=== PATIENT | male | born 1995 | race Caucasian/White ===

== ENCOUNTER 2018-10-10 23:51 | Emergency (ER) | payer OTHER, MEDICAID, SELFPAY ==
[2018-10-11 00:01] VITALS: BP 133/61; PULSE 59; RESP 16; TEMP 36.6; O2SAT 98; BMI 29.0
--- NOTE | 2018-10-11 00:07 | ED.RECABL ---
HPI - Recheck/Abnormal Lab/Rx General Chief Complaint: Recheck/Abnormal Lab/Rx Stated Complaint: out of seizure medication, feels stressed Time Seen by Provider: 10/11/18 00:00 Source: patient and family Mode of arrival: ambulatory Limitations: no limitations History of Present Illness HPI narrative: 23-year-old male, nonsmoker with history of epilepsy presents feeling a bit fuzzy and scattered as he does when preparing to have a seizure. He takes Keppra but has been unable to access his medications for the past 2 days for various social reasons. He has a prescription waiting for him but has been unable to get it. Additionally the patient has been under significant social stresses at home and has some epigastric discomfort, nausea and inability to eat or drink for the past day or 2. He denies provocation, palliation or radiation of this pain. He denies any history of the same. He denies recent antibiotics, exposure to ill persons or international travel Initial visit (ago): day(s) Symptoms since prior visit: no new symptoms Related Data Allergies Allergy/AdvReac Type Severity Reaction Status Date / Time Penicillins Allergy Verified 10/11/18 00:05 Sulfa (Sulfonamide Allergy Verified 10/11/18 00:05 Antibiotics) Review of Systems Constitutional Denies chills, Denies fever(s), Denies lethargy and Denies weakness Eyes Denies change in vision, Denies eye discharge, Denies irritation and Denies loss of vision ENT Ears, Nose, Mouth, and Throat: Denies change in voice, Denies neck pain and Denies sore throat Cardiovascular Denies chest pain, Denies irregular heart rhythm, Denies lightheadedness, Denies palpitations, Denies dyspnea, Denies dyspnea on exertion and Denies orthopnea Respiratory Denies cough, Denies dyspnea, Denies dyspnea on exertion and Denies wheezing Gastrointestinal Gastrointestinal: Reports abdominal pain, Denies change in bowel habits, Denies diarrhea, Reports nausea and Reports vomiting Genitourinary Denies hematuria, Denies flank pain, Denies urinary incontinence and Denies urinary urgency Musculoskeletal Denies neck pain Integumentary/Breasts Denies pruritus, Denies erythema, Denies rash and Denies wounds Neurologic Denies confusion, Denies loss of vision and Denies weakness Psychiatric Denies anxiety, Denies confusion, Denies depression, Denies homicidal ideation and Denies suicidal ideation Endocrine Denies palpitations Hematologic/Lymphatic Denies easy bruising Allergic/Immunologic Denies wheezing PFSH Medical History Epilepsy (Acute) Social History Smoking Status: Never smoker Social History Smoking Status: Never smoker Exam Narrative Exam Narrative: GENERAL: This is a well-nourished, well-developed patient, in mild distress. HEAD: Atraumatic. Normocephalic. No temporal or scalp tenderness. EYES: Pupils equal round and reactive. Extraocular motions intact. No scleral icterus. No injection or drainage. ENT: Nose without bleeding, purulent drainage or septal hematoma. Throat without erythema, tonsillar hypertrophy or exudate. Uvula midline. Airway patent. NECK: Trachea midline. No JVD or lymphadenopathy. Supple, nontender, no meningeal signs. CARDIOVASCULAR: Regular rate and rhythm without murmurs, gallops, or rubs. RESPIRATORY: Clear to auscultation. Breath sounds equal bilaterally. No wheezes, rales, or rhonchi. GASTROINTESTINAL: Abdomen soft, mild epigastric tenderness, nondistended. No hepato-splenomegaly, or palpable masses. No guarding. EXTREMITIES: No clubbing, cyanosis, or edema. No joint tenderness, effusion, or edema noted. BACK: Nontender without deformity or crepitance. No flank tenderness. NEURO: AOx3. SKIN: No rash or erythema. Initial Vital Signs Initial Vital Signs: Vital Signs Temperature 97.9 F 10/11/18 00:01 Pulse Rate 59 L 10/11/18 00:01 Respiratory Rate 16 10/11/18 00:01 Blood Pressure 133/61 10/11/18 00:01 Pulse Oximetry 98 10/11/18 00:01 Course Orders Ordered: ED Orders 10/11/18 01:12 Complete Blood Count AUTO DIFF Stat Comprehensive Metabolic Panel Stat Lipase Stat Discontinued Medications Al Hydrox/Mg Hydrox/Simethicone 20 ml/ Lidocaine HCl 15 ml 0 ml PO NOW ONE Stop: 10/11/18 00:14 Last Admin: 10/11/18 01:02 Dose: 35 ml Sodium Chloride (Normal Saline 0.9%) 1,000 mls @ 1,000 mls/hr IV BOLUS ONE Stop: 10/11/18 01:11 Last Infusion: 10/11/18 01:53 Dose: 0 mls/hr Admin: 10/11/18 01:02 Dose: 1,000 mls/hr Levetiracetam 500 mg/ Sodium (Chloride) 105 mls @ 420 mls/hr IV NOW ONE Stop: 10/11/18 00:13 Last Infusion: 10/11/18 01:33 Dose: 0 mls/hr Admin: 10/11/18 01:03 Dose: 420 mls/hr Pantoprazole Sodium (Protonix) 40 mg IV NOW ONE Stop: 10/11/18 00:13 Last Admin: 10/11/18 01:02 Dose: 40 mg Reevaluation(s) Reevaluation #1: Patient put into seizure precautions Vital Signs - 8 hr 10/11/18 00:01 10/11/18 01:55 Temperature 97.9 F Pulse Rate 59 L 53 L Respiratory Rate 16 15 Blood Pressure 133/61 119/75 Pulse Oximetry 98 100 MDM - Recheck/Abnormal Lab/Rx Lab Data Result diagrams: 10/11/18 01:12 10/11/18 01:12 Lab Results 10/11/18 10/11/18 10/11/18 Range/Units 01:12 01:12 01:12 WBC 8.2 (4.5-11.0) X10^3/uL RBC 4.90 (4.5-5.9) X10^6/uL Hgb 14.1 (13.5-17.5) g/dL Hct 41.5 (41-53) % MCV 84.7 (80-100) fL MCH 28.8 (26-34) PG MCHC 34.0 (30-36) % RDW 13.2 (11.6-14.8) % Plt Count 344 (150-400) X10^3/uL Neut % (Auto) 56.2 (50-75) % Lymph % (Auto) 35.4 (25-40) % Anderson % (Auto) 7.0 (3-14) % Eos % (Auto) 0.8 L (2-4) % Baso % (Auto) 0.6 (0-2) % Neut # (Auto) 4600 (9836-9559) /uL Lymph # (Auto) 2900 (1769-8973) /uL Anderson # (Auto) 600 (0-900) /uL Eos # (Auto) 100 (0-450) /uL Baso # (Auto) 0 (0-100) /uL Sodium 141 (137-145) mmol/L Potassium 4.2 (3.4-5.1) mmol/L Chloride 102 (98-107) mmol/L Carbon Dioxide 29 (22-32) mmol/L BUN 19 (9-20) mg/dL Creatinine 0.80 (0.66-1.25) mg/dL Estimated GFR > 60.0 (>60) mL/min BUN/Creatinine Ratio 23.8 H (6-22) Glucose 89 (70-100) mg/dL Calcium 9.5 (8.4-10.2) mg/dL Total Bilirubin 0.3 (0.2-1.3) mg/dL AST 21 (17-59) IU/L ALT 27 (21-72) IU/L Alkaline Phosphatase 68 (38-126) U/L Total Protein 7.7 (6.3-8.2) g/dL Albumin 4.8 (3.5-5.0) g/dL Globulin 2.9 (1.7-4.1) g/dL Albumin/Globulin Ratio 1.7 (1.0-2.8) Lipase 149 (23-300) U/L Discharge Plan Departure Patient Disposition: Home Clinical Impression: Encounter for medication refill, Abdominal pain, acute, epigastric Discharge Date/Time: 10/11/18 01:56 Interventions: ED Discharge Assessment Last Done: 10/11/18 01:55 Instructions: DI for Epigastric Pain Activity Restrictions/Additional Instructions: *You have been diagnosed with [ acute epigastric pain, medication refill ] *What to do: *Take medications as directed, including [id number] Nexium or similar antacid type medication. Additionally please avoid alcohol, caffeine, nicotine, fatty foods *Follow up with your primary care provider in 2-3 days, call for an appointment. Let them know you were seen in the Emergency Department and that we ask that you be seen in follow up *Return to ER if you should have any new, worsening or concerning symptoms
[2018-10-11] MEDS: MAG HYDROX/ALUMINUM/SIMETH SUS 20 ML, LIDOCAINE VISCOUS 2% 15 ML PO (01:02)
[2018-10-11] MEDS: PANTOPRAZOLE 40 MG VIAL IV (01:02)
[2018-10-11] MEDS: SODIUM CHLORIDE 0.9% 1,000 ML 1000 ML IV (01:02)
[2018-10-11] MEDS: levETIRAcetam 500 MG in SODIUM CHLORIDE 0.9% 100 ML 420 ML IV (01:03)
[2018-10-11 01:20] LABS: Add Manual Diff / Slide Review NO; Basophils Absolute Auto 0 /uL (0-100); Basophils Percent Auto 0.6 % (0-2); Eosinophils Absolute Auto 100 /uL (0-450); Eosinophils Percent Auto 0.8 % (2-4); Hematocrit 41.5 % (41-53); Hemoglobin 14.1 g/dL (13.5-17.5); Lymphocytes Absolute Auto 2900 /uL (1100-4500); Lymphocytes Percent Auto 35.4 % (25-40); Mean Corpuscular Hemoglobin 28.8 PG (26-34); Mean Corpuscular Volume 84.7 fL (80-100); Monocytes Absolute Auto 600 /uL (0-900); Neutrophils Absolute Auto 4600 /uL (1500-7000); Neutrophils Percent Auto 56.2 % (50-75); Platelet Count 344 X10^3/uL (150-400); Red Cell Distribution Width 13.2 % (11.6-14.8); White Blood Cell Count 8.2 X10^3/uL (4.5-11.0)
[2018-10-11 01:25] LABS: Alanine Aminotransferase 27 IU/L (21-72); Albumin 4.8 g/dL (3.5-5.0); Albumin Globulin Ratio 1.7 (1.0-2.8); Alkaline Phosphatase 68 U/L (38-126); Aspartate Aminotransferase 21 IU/L (17-59); BUN Creatinine Ratio 23.8 (6-22); Bilirubin Total 0.3 mg/dL (0.2-1.3); Blood Urea Nitrogen 19 mg/dL (9-20); Calcium 9.5 mg/dL (8.4-10.2); Carbon Dioxide 29 mmol/L (22-32); Chloride 102 mmol/L (98-107); Estimated Glomerular Filt Rate > 60.0 mL/min (>60); Globulin 2.9 g/dL (1.7-4.1); Glucose 89 mg/dL (70-100); HEMOLYSIS 19 (0-50); Potassium 4.2 mmol/L (3.4-5.1); Sodium 141 mmol/L (137-145); Total Protein 7.7 g/dL (6.3-8.2)
[2018-10-11 01:31] LABS: Lipase 149 U/L (23-300)
[2018-10-11 01:55] VITALS: BP 119/75; PULSE 53; RESP 15; O2SAT 100
== END 2018-10-11 01:56 | disposition home or self-care (01) ==
PROVIDERS: Emergency Provider Emergency Medicine
DX: R10.13 Epigastric pain (principal)
CPT/HCPCS: 36591; 80053; 83690; 85025; 96361; 96365; 96375; 99283; 99284; C9113; J1953

== ENCOUNTER 2019-02-04 21:06 | Emergency (ER) | payer OTHER, MEDICAID, SELFPAY ==
[2019-02-04 21:08] VITALS: BP 113/66; PULSE 69; RESP 18; TEMP 36.7; O2SAT 96; BMI 28.3
--- NOTE | 2019-02-04 21:11 | DI.RAD.S_ITS ---
PROCEDURE: XR FOOT RT MIN 3V INDICATIONS: Injury TECHNIQUE: 3 views of the foot were acquired. COMPARISON: None. FINDINGS: Bones: No fractures or dislocations. No suspicious bony lesions. Soft tissues: No tibiotalar joint effusion. Achilles tendon appears normal. IMPRESSION: No source of pain after trauma. Dictated by: Lobito Medina M.D. on 02/04/2019 at 21:26 Approved by: Lobito Medina M.D. on 02/04/2019 at 21:32
--- NOTE | 2019-02-04 21:14 | ED_ITS ---
HPI - Extremity Injury (Lower) General Chief Complaint: Extremity Injury, Lower Stated Complaint: right foot pain x 14 days Time Seen by Provider: 02/04/19 21:14 Source: patient Mode of arrival: ambulatory Limitations: no limitations History of Present Illness HPI Narrative: Patient is a 23-year-old male here for evaluation of her right foot injury. Patient states that 10-14 days ago he caught the front of his foot in a ditch in the ground. He then went forward. Has had pain on the top of his foot near his big toe since that event. States the pain is worsened over the past several days. He has tried ice at home and ibuprofen and Tylenol with only minimal relief. No breaks in the skin. Came into the emergency department for evaluation. Related Data Previous Rx's Medication Instructions Recorded cyclobenzaprine 10 mg PO TID PRN #14 tab 02/04/19 Allergies Allergy/AdvReac Type Severity Reaction Status Date / Time Penicillins Allergy Verified 10/11/18 00:05 Sulfa (Sulfonamide Allergy Verified 10/11/18 00:05 Antibiotics) Review of Systems Constitutional Denies fever(s) and Denies headache(s) ENT Ears, Nose, Mouth, and Throat: Denies headache(s) and Denies disequilibrium Cardiovascular Denies chest pain and Denies dyspnea Respiratory Denies dyspnea Gastrointestinal Gastrointestinal: Denies abdominal pain Musculoskeletal Comments: Right foot pain Integumentary/Breasts Denies new lesions and Denies rash Neurologic Denies headache(s), Denies tremor(s) and Denies disequilibrium Hematologic/Lymphatic Denies easy bleeding and Denies easy bruising [facility] Medical History Epilepsy (Acute) Social History Smoking Status: Never smoker Social History Smoking Status: Never smoker Exam Initial Vital Signs Initial Vital Signs: Vital Signs Temperature 98.1 F 02/04/19 21:08 Pulse Rate 69 02/04/19 21:08 Respiratory Rate 18 02/04/19 21:08 Blood Pressure 113/66 02/04/19 21:08 Pulse Oximetry 96 02/04/19 21:08 Resp Effort & Inspection: normal respiratory effort Cardio Pulses: dorsalis pedis present on the right Skin Lesions: no lesions Rashes: no rashes Neuro Sensory Exam: no sensory deficits noted Extrem Other: Right proximal fibula and right calf unremarkable. Right ankle unremarkable. Patient with tenderness to palpation on the dorsum of the foot between the 1st and 2nd metatarsal. Also tenderness to palpation on the plantar aspect of this area. His toes unremarkable. The lateral aspect of the foot is unremarkable. Course Orders Ordered: ED Orders 02/04/19 21:11 XR foot RT min 3V Stat 02/04/19 21:33 CT LE RT wo con Stat Discontinued Medications Hydrocodone Bitart/Acetaminophen ([place] 5/325) 1 tab PO NOW ONE Stop: 02/04/19 22:18 Last Admin: 02/04/19 22:22 Dose: 1 tab Cyclobenzaprine HCl (Flexeril) 10 mg PO NOW ONE Stop: 02/04/19 22:18 Last Admin: 02/04/19 22:22 Dose: 10 mg Vital Signs - 8 hr 02/04/19 21:08 02/04/19 22:45 Temperature 98.1 F Pulse Rate 69 72 Respiratory Rate 18 18 Blood Pressure 113/66 114/72 Pulse Oximetry 96 98 MDM - Extremity Injury (Lower) Imaging Data X-ray foot: Radiologist's impression: [address] [address] XRay Report Signed Patient: Ulises Pierce II BMR#: [id number] : 1995Acct:[id number] Age/Sex: 23 / MDate of Service: 02/04/19 Loc: ED Accession Number: [id number] Procedure: XR foot RT min 3V Ordering Provider: Ryley Gannon D.O. PROCEDURE: XR FOOT RT MIN 3V INDICATIONS: Injury TECHNIQUE: 3 views of the foot were acquired. COMPARISON: None. FINDINGS: Bones: No fractures or dislocations. No suspicious bony lesions. Soft tissues: No tibiotalar joint effusion. Achilles tendon appears normal. IMPRESSION: No source of pain after trauma. Dictated by: Lobito Medina M.D. on 02/04/2019 at 21:26 Approved by: Lobito Medina M.D. on 02/04/2019 at 21:32 CT scan foot: Radiologist's impression: [address] [address] [address] Scan Report Signed Patient: Ulises Pierce II BMR#: [id number] : 1995Acct:[id number] Age/Sex: 23 / MDate of Service: 02/04/19 Loc: ED Accession Number: [id number] Procedure: CT LE RT wo con Ordering Provider: Ryley Gannon D.O. PROCEDURE: CT LE RT WO CON INDICATIONS: Concern for Lisfranc injury TECHNIQUE: Noncontrast 1-1.5 mm axial sections acquired from above the tibiotalar joint to the bottom of the calcaneus, with coronal and sagittal reformats. COMPARISON: [facility], CR, XR FOOT RT MIN 3V, 02/04/2019, 21:19. FINDINGS: Image quality: Excellent. Bones: No trauma, no malalignment. Soft tissues: No fracture soft tissue edema found, no evidence of ligamentous disruption. IMPRESSION: Normal osseous alignment, no fracture found. Dictated by: Lobito Medina M.D. on 02/04/2019 at 21:56 Approved by: Lobito Medina M.D. on 02/04/2019 at 21:59 [facility] Narrative Medical decision making narrative: Patient describes the injury as a plantar flexion after he got his foot caught in a hole in the ground. He does have tenderness over the 1st and 2nd metatarsal on the dorsum aspect of his foot. The x-rays were negative. Given his mechanism in the location of the pain I do have some concern about a Lisfranc injury. CT scan was obtained which showed no abnormalities. Patient was given crutches for comfort. We did discuss Tylenol Motrin and also icing the area. He was given phone number for the health resources coordinator to help establish a primary provider. Was given return precautions and follow-up instructions. He expressed understanding and agreement with plan Discharge Plan Departure Patient Disposition: Home Clinical Impression: Foot pain, right Discharge Date/Time: 02/04/19 22:48 Interventions: ED Discharge Assessment Last Done: 02/04/19 22:45 Instructions: How to Use Crutches, DI for Foot Pain Activity Restrictions/Additional Instructions: Use the crutches as needed for comfort. You can take Tylenol every 4-6 hours and ibuprofen every 6-8 hours as needed for discomfort. You can contact the health complex human resources manager here at the hospital at [phone] to help you establish a primary provider. You can also contact the [facility] group at [phone] for follow-up. Return to the emergency department for any new or worsening symptoms. Prescriptions: New cyclobenzaprine 10 mg tablet 10 mg PO TID PRN (Reason: muscle spasm) Qty: 14 RF: 0
--- NOTE | 2019-02-04 21:33 | DI.CT.S_ITS ---
PROCEDURE: CT LE RT WO CON INDICATIONS: Concern for Lisfranc injury TECHNIQUE: Noncontrast 1-1.5 mm axial sections acquired from above the tibiotalar joint to the bottom of the calcaneus, with coronal and sagittal reformats. COMPARISON: [facility], CR, XR FOOT RT MIN 3V, 02/04/2019, 21:19. FINDINGS: Image quality: Excellent. Bones: No trauma, no malalignment. Soft tissues: No fracture soft tissue edema found, no evidence of ligamentous disruption. IMPRESSION: Normal osseous alignment, no fracture found. Dictated by: Lobito Medina M.D. on 02/04/2019 at 21:56 Approved by: Lobito Medina M.D. on 02/04/2019 at 21:59
[2019-02-04] MEDS: CYCLOBENZAPRINE 10 MG TABLET PO (22:22)
[2019-02-04] MEDS: HYDROCODONE/ACET 5/325 TABLET 1 TAB PO (22:22)
[2019-02-04 22:45] VITALS: BP 114/72; PULSE 72; RESP 18; O2SAT 98
== END 2019-02-04 22:48 | disposition home or self-care (01) ==
PROVIDERS: Emergency Provider Emergency Medicine
DX: M79.671 Pain in right foot (principal)
CPT/HCPCS: 73630; 73700; 99282; 99284

== ENCOUNTER 2019-02-14 21:07 | Emergency (ER) | payer OTHER, MEDICAID, SELFPAY ==
[2019-02-14 21:14] VITALS: BP 119/64; PULSE 67; RESP 18; TEMP 36.6; O2SAT 98
--- NOTE | 2019-02-14 22:26 | DI.RAD.S_ITS ---
PROCEDURE: XR FOOT RT MIN 3V INDICATIONS: Foot pain after plantar flexion injury TECHNIQUE: 3 views of the foot were acquired. COMPARISON: [facility], CR, XR FOOT RT MIN 3V, 02/04/2019, 21:19. FINDINGS: Bones: No fractures or dislocations. No suspicious bony lesions. Soft tissues: No tibiotalar joint effusion. Achilles tendon appears normal. IMPRESSION: No trauma found. Dictated by: Lobito Medina M.D. on 02/15/2019 at 9:34 Approved by: Lobito Medina M.D. on 02/15/2019 at 9:36
--- NOTE | 2019-02-14 22:27 | ED.LOWEXIN ---
HPI - Extremity Injury (Lower) General Chief Complaint: Extremity Injury, Lower Stated Complaint: Foot injury -1 week ago- needs clearance for work Time Seen by Provider: 02/14/19 22:16 Source: patient Mode of arrival: ambulatory Limitations: no limitations History of Present Illness HPI Narrative: Patient is a 23-year-old male who I evaluated the emergency department several days ago for right foot pain after he sustained a plantar flexion injury. At that time there was some concern about a Jo [place] franc injury. I obtained an x-ray and a CT scan of the time and showed no signs of pathology. He was instructed to follow up with his primary provider. He was given a number to contact to establish a primary provider. Stated since that time he has continued to have right foot pain. He arrives today stating that he wanted re-evaluated and also needed a note for work because he has missed days. Related Data Previous Rx's Medication Instructions Recorded cyclobenzaprine 10 mg PO TID PRN #14 tab 02/04/19 Allergies Allergy/AdvReac Type Severity Reaction Status Date / Time Penicillins Allergy Verified 10/11/18 00:05 Sulfa (Sulfonamide Allergy Verified 10/11/18 00:05 Antibiotics) Review of Systems Musculoskeletal Denies tingling Comments: Right foot pain Integumentary/Breasts Denies rash Neurologic Denies tingling Hematologic/Lymphatic Denies easy bleeding and Denies easy bruising [facility] Medical History Epilepsy (Acute) Social History Smoking Status: Never smoker Social History Smoking Status: Never smoker Exam Initial Vital Signs Initial Vital Signs: Vital Signs Temperature 98 F 02/14/19 21:14 Pulse Rate 67 02/14/19 21:14 Respiratory Rate 18 02/14/19 21:14 Blood Pressure 119/64 02/14/19 21:14 Pulse Oximetry 98 02/14/19 21:14 Const General: cooperative, healthy appearing, comfortable, well developed and well groomed Orientation: alert, awake and oriented x3 Cardio Pulses: dorsalis pedis present on the right Skin Lesions: no lesions Rashes: no rashes Neuro General: alert, awake and oriented x3 Extrem Other: Tenderness to palpation along the dorsum of the right foot. No right ankle tenderness. Right toes unremarkable. Right lower low leg unremarkable Psych Appearance: grossly normal and well kempt Course Orders Ordered: ED Orders 02/14/19 22:26 XR foot RT min 3V Stat Discontinued Medications Ibuprofen (Advil) 800 mg PO NOW ONE Stop: 02/14/19 23:19 Last Admin: 02/14/19 23:28 Dose: 800 mg Vital Signs - 8 hr 02/14/19 21:14 02/14/19 23:04 Temperature 98 F Pulse Rate 67 57 L Respiratory Rate 18 16 Blood Pressure 119/64 Blood Pressure [Left Arm] 108/69 Pulse Oximetry 98 100 MDM - Extremity Injury (Lower) Imaging Data Weight-bearing right foot film: Attestation: I personally reviewed and interpreted this imaging study as follows: My impression: No fractures, no dislocations, no acute pathology, MDM Narrative Medical decision making narrative: Patient is neurovascular intact. The weight-bearing films today shows no acute fracture per my read. Patient has been ambulatory although with some discomfort. He was again given a phone number to contact to establish a primary provider. He was given a note stating that he should not have prolonged standing while at work. Patient was also given follow-up instructions with [facility] orthopedics. He expressed understanding and agreement with plan. Discharge Plan Departure Patient Disposition: Home Clinical Impression: Foot pain, right Discharge Date/Time: 02/14/19 23:41 Interventions: ED Discharge Assessment Last Done: 02/14/19 23:40 Instructions: How To Perform RICE (Rest, Ice, Compress, Elevate) Activity Restrictions/Additional Instructions: Recommend you contact the health resource program teacher at [phone] for follow-up. You can also contact the [facility] group at [phone] for follow-up as well. You can take Tylenol and/or ibuprofen for any discomfort. Prescriptions: No Action cyclobenzaprine 10 mg tablet 10 mg PO TID PRN (Reason: muscle spasm) Qty: 14 RF: 0 Stand Alone Forms: Work Release Note
[2019-02-14 23:04] VITALS: BP 108/69; PULSE 57; RESP 16; O2SAT 100
[2019-02-14] MEDS: IBUPROFEN 400 MG TABLET 800 MG PO (23:28)
== END 2019-02-14 23:41 | disposition home or self-care (01) ==
PROVIDERS: Emergency Provider Emergency Medicine
DX: M79.671 Pain in right foot (principal)
CPT/HCPCS: 73630; 99282; 99283

== ENCOUNTER 2019-02-20 23:53 | Emergency (ER) | payer OTHER, MEDICAID, SELFPAY ==
[2019-02-21 00:03] VITALS: BP 136/79; PULSE 76; RESP 18; TEMP 36.4; O2SAT 97; BMI 26.5
[2019-02-21] MEDS: levETIRAcetam 250 MG TABLET 500 MG PO (00:03)
[2019-02-21] MEDS: SODIUM CHLORIDE 0.9% 1,000 ML 1000 ML IV (00:23)
[2019-02-21 00:28] LABS: Add Manual Diff / Slide Review NO; Basophils Absolute Auto 100 /uL (0-100); Basophils Percent Auto 0.7 % (0-2); Eosinophils Absolute Auto 100 /uL (0-450); Eosinophils Percent Auto 1.1 % (2-4); Hematocrit 38.4 % (41-53); Lymphocytes Absolute Auto 3600 /uL (1100-4500); Lymphocytes Percent Auto 40.7 % (25-40); Mean Corpuscular Hemoglobin 28.9 PG (26-34); Mean Corpuscular Volume 84.9 fL (80-100); Monocytes Absolute Auto 500 /uL (0-900); Monocytes Percent Auto 6.2 % (3-14); Neutrophils Absolute Auto 4500 /uL (1500-7000); Neutrophils Percent Auto 51.3 % (50-75); Platelet Count 341 X10^3/uL (150-400); Red Blood Cell Count 4.52 X10^6/uL (4.5-5.9); Red Cell Distribution Width 13.3 % (11.6-14.8); White Blood Cell Count 8.7 X10^3/uL (4.5-11.0)
[2019-02-21 00:34] LABS: BUN Creatinine Ratio 17.1 (6-22); Blood Urea Nitrogen 12 mg/dL (9-20); Calcium 9.2 mg/dL (8.4-10.2); Carbon Dioxide 26 mmol/L (22-32); Chloride 105 mmol/L (98-107); Estimated Glomerular Filt Rate > 60.0 mL/min (>60); Glucose 112 mg/dL (70-100); Sodium 141 mmol/L (137-145)
[2019-02-21 00:35] LABS: HEMOLYSIS 104 (0-50)
[2019-02-21 00:36] LABS: Potassium 3.9 mmol/L (3.4-5.1)
--- NOTE | 2019-02-21 00:47 | ED.DIZZY ---
HPI - Dizziness General Chief Complaint: Dizziness Stated Complaint: has history of seizures, says not feeling good Time Seen by Provider: 02/20/19 23:56 Source: patient Mode of arrival: ambulatory Limitations: no limitations History of Present Illness HPI Narrative: Patient is a 23-year-old male with history of epilepsy feeling dizzy lightheaded. He has missed 2 doses of his Keppra as he lost his prescription. He says he typically feels this way when he is about to have a seizure. He says he has been eating drinking and sleeping regularly. He did work all some more over the weekend sort of hard. He denies any alcohol use he does smoke marijuana daily. He is having some mild epigastric pain and his brother had a cardiac arrest at the age of 20. He denies any nausea or vomiting. No weakness. He was seen evaluated here in October 2018 with very similar symptoms. MD complaint: lightheadedness Severity: similar to previous episodes Related Data Previous Rx's Medication Instructions Recorded cyclobenzaprine 10 mg PO TID PRN #14 tab 02/04/19 levetiracetam [Keppra] 500 mg PO BID #60 tab 02/21/19 Allergies Allergy/AdvReac Type Severity Reaction Status Date / Time Penicillins Allergy Verified 10/11/18 00:05 Sulfa (Sulfonamide Allergy Verified 10/11/18 00:05 Antibiotics) Review of Systems Review of Systems ROS Unobtainable: All systems reviewed & are unremarkable except as noted in HPI and below Constitutional Denies chills, Denies fever(s), Denies lethargy and Denies weakness Eyes Denies change in vision, Denies eye discharge, Denies irritation and Denies loss of vision ENT Ears, Nose, Mouth, and Throat: Denies change in voice, Denies neck pain and Denies sore throat Cardiovascular Reports as per HPI, Reports chest pain (Epigastric), Denies diaphoresis, Denies syncope, Denies edema, Reports lightheadedness, Denies dyspnea and Denies dyspnea on exertion Respiratory Denies cough, Denies dyspnea, Denies dyspnea on exertion and Denies wheezing Gastrointestinal Gastrointestinal: Denies abdominal pain, Denies change in bowel habits, Denies diarrhea, Denies nausea and Denies vomiting Genitourinary Denies hematuria, Denies flank pain, Denies urinary incontinence and Denies urinary urgency Musculoskeletal Denies neck pain Integumentary/Breasts Denies pruritus, Denies erythema, Denies rash and Denies wounds Neurologic Reports as per HPI, Denies confusion, Denies syncope, Denies loss of vision and Denies weakness Psychiatric Denies anxiety, Denies confusion, Denies depression, Denies homicidal ideation and Denies suicidal ideation Allergic/Immunologic Denies wheezing [facility] Medical History Epilepsy (Acute) Social History Smoking Status: Never smoker Social History Smoking Status: Never smoker Exam Initial Vital Signs Initial Vital Signs: Vital Signs Temperature 97.5 F L 02/21/19 00:03 Pulse Rate 76 02/21/19 00:03 Respiratory Rate 18 02/21/19 00:03 Blood Pressure 136/79 02/21/19 00:03 Pulse Oximetry 97 02/21/19 00:03 GENERAL: Well-appearing, well-nourished and in no acute distress. HEENT: Head atraumatic,EOMI, pupils reactive, face symmetric, CARDIOVASCULAR: Regular rate and rhythm without murmurs, rubs or gallops. RESPIRATORY: Breath sounds equal bilaterally, no wheezes rales or rhonchi. ABDOMEN: Soft, nontender. Mild epigastric pain no guarding no rebound Normoactive bowel sounds all 4 quadrants. No guarding or rebound. EXTREMITIES: Normal range of motion, no clubbing or edema. Neurovascularly intact NEUROLOGICAL: Alert and oriented x4.Normal gait and speech. Cranial nerves II through XII grossly intact. SKIN: Warm, dry, no laceration, no petechiae, no rashes or lesions. Course Orders Ordered: ED Orders 02/21/19 00:02 EKG-12 Lead Stat 02/21/19 00:15 Basic Metabolic Panel Stat Complete Blood Count AUTO DIFF Stat Discontinued Medications Sodium Chloride (Normal Saline 0.9%) 1,000 mls @ 1,000 mls/hr IV BOLUS ONE Stop: 02/21/19 01:10 Last Infusion: 02/21/19 04:28 Dose: 0 mls/hr Admin: 02/21/19 00:23 Dose: 1,000 mls/hr Levetiracetam (Keppra) 500 mg PO NOW ONE Stop: 02/20/19 23:59 Last Admin: 02/21/19 00:03 Dose: 500 mg Vital Signs - 8 hr 02/21/19 00:03 02/21/19 04:30 Temperature 97.5 F L Pulse Rate 76 63 Respiratory Rate 18 16 Blood Pressure 136/79 116/65 Pulse Oximetry 97 98 MDM - Dizziness Lab Data Attestation: I reviewed the patient's lab results. Result diagrams: 02/21/19 00:15 02/21/19 00:15 Lab Results 02/21/19 02/21/19 Range/Units 00:15 00:15 WBC 8.7 (4.5-11.0) X10^3/uL RBC 4.52 (4.5-5.9) X10^6/uL Hgb 13.0 L (13.5-17.5) g/dL Hct 38.4 L (41-53) % MCV 84.9 (80-100) fL MCH 28.9 (26-34) PG MCHC 34.0 (30-36) % RDW 13.3 (11.6-14.8) % Plt Count 341 (150-400) X10^3/uL Neut % (Auto) 51.3 (50-75) % Lymph % (Auto) 40.7 H (25-40) % [place] % (Auto) 6.2 (3-14) % Eos % (Auto) 1.1 L (2-4) % Baso % (Auto) 0.7 (0-2) % Neut # (Auto) 4500 (3333-7183) /uL Lymph # (Auto) 3600 (4281-6428) /uL [place] # (Auto) 500 (0-900) /uL Eos # (Auto) 100 (0-450) /uL Baso # (Auto) 100 (0-100) /uL Sodium 141 (137-145) mmol/L Potassium 3.9 (3.4-5.1) mmol/L Chloride 105 (98-107) mmol/L Carbon Dioxide 26 (22-32) mmol/L BUN 12 (9-20) mg/dL Creatinine 0.70 (0.66-1.25) mg/dL Estimated GFR > 60.0 (>60) mL/min BUN/Creatinine Ratio 17.1 (6-22) Glucose 112 H (70-100) mg/dL Calcium 9.2 (8.4-10.2) mg/dL ECG Data Attestation: I personally reviewed and interpreted this ECG as follows: Prior ECG tracings: available for review Interpretation: Normal sinus rhythm rate 63 P are [address] changes no T-wave inversions similar to previous EKGs MDM Narrative Medical decision making narrative: Patient monitored in the ED for number of hours no seizure activity. He is given 1 dose of Keppra in the ED and prescription. Overall he is feeling much better after a L fluid. He did not have a seizure he has no focal deficits at this time no need for any further testing or imaging. Discharge Plan Departure Patient Disposition: Home Clinical Impression: Seizure disorder, Medication refill Discharge Date/Time: 02/21/19 04:31 Interventions: ED Discharge Assessment Last Done: 02/21/19 04:30 Instructions: DI for Seizure Disorder -- Adult Activity Restrictions/Additional Instructions: *You have been diagnosed with seizure disorder, medication refill *What to do: *Continue to take medications as directed Keppra 500 mg twice a day *Follow up with your primary care provider in 2-3 days *Return to ER if you should have seizure, passing out or any new, worsening or concerning symptoms Prescriptions: New levetiracetam [Keppra] 500 mg tablet 500 mg PO BID Qty: 60 RF: 0 No Action cyclobenzaprine 10 mg tablet 10 mg PO TID PRN (Reason: muscle spasm) Qty: 14 RF: 0
--- NOTE | 2019-02-21 00:51 | ED_ITS ---
HPI - Dizziness General Chief Complaint: Dizziness Stated Complaint: has history of seizures, says not feeling good Time Seen by Provider: 02/20/19 23:56 Source: patient Mode of arrival: ambulatory Limitations: no limitations History of Present Illness HPI Narrative: Patient is a 23-year-old male with history of epilepsy feeling dizzy lightheaded. He has missed 2 doses of his Keppra as he lost his prescription. He says he typically feels this way when he is about to have a seizure. He says he has been eating drinking and sleeping regularly. He did work all some more over the weekend sort of hard. He denies any alcohol use he does smoke marijuana daily. He is having some mild epigastric pain and his bro ther had a cardiac arrest at the age of 20. He denies any nausea or vomiting. No weakness. He was seen evaluated here in October 2018 with very similar symptoms. MD complaint: lightheadedness Severity: similar to previous episodes Related Data Previous Rx's Medication Instructions Recorded cyclobenzaprine 10 mg PO TID PRN #14 tab 02/04/19 levetiracetam [Keppra] 500 mg PO BID #60 tab 02/21/19 Allergies Allergy/AdvReac Type Severity Reaction Status Date / Time Penicillins Allergy Verified 10/11/18 00:05 Sulfa (Sulfonamide Allergy Verified 10/11/18 00:05 Antibiotics) Review of Systems Review of Systems ROS Unobtainable: All systems reviewed & are unremarkable except as noted in HPI and below Constitutional Denies chills, Denies fever(s), Denies lethargy and Denies weakness Eyes Denies change in vision, Denies eye discharge, Denies irritation and Denies loss of vision ENT Ears, Nose, Mouth, and Throat: Denies change in voice, Denies neck pain and Denies sore throat Cardiovascular Reports as per HPI, Reports chest pain (Epigastric), Denies diaphoresis, Denies syncope, Denies edema, Reports lightheadedness, Denies dyspnea and Denies dyspnea on exertion Respiratory Denies cough, Denies dyspnea, Denies dyspnea on exertion and Denies wheezing Gastrointestinal Gastrointestinal: Denies abdominal pain, Denies change in bowel habits, Denies diarrhea, Denies nausea and Denies vomiting Genitourinary Denies hematuria, Denies flank pain, Denies urinary incontinence and Denies urinary urgency Musculoskeletal Denies neck pain Integumentary/Breasts Denies pruritus, Denies erythema, Denies rash and Denies wounds Neurologic Reports as per HPI, Denies confusion, Denies syncope, Denies loss of vision and Denies weakness Psychiatric Denies anxiety, Denies confusion, Denies depression, Denies homicidal ideation and Denies suicidal ideation Allergic/Immunologic Denies wheezing [facility] Medical History Epilepsy (Acute) Social History Smoking Status: Never smoker Social History Smoking Status: Never smoker Exam Initial Vital Signs Initial Vital Signs: Vital Signs Temperature 97.5 F L 02/21/19 00:03 Pulse Rate 76 02/21/19 00:03 Respiratory Rate 18 02/21/19 00:03 Blood Pressure 136/79 02/21/19 00:03 Pulse Oximetry 97 02/21/19 00:03 GENERAL: Well-appearing, well-nourished and in no acute distress. HEENT: Head atraumatic,EOMI, pupils reactive, face symmetric, CARDIOVASCULAR: Regular rate and rhythm without murmurs, rubs or gallops. RESPIRATORY: Breath sounds equal bilaterally, no wheezes rales or rhonchi. ABDOMEN: Soft, nontender. Mild epigastric pain no guarding no rebound Normoactive bowel sounds all 4 quadrants. No guarding or rebound. EXTREMITIES: Normal range of motion, no clubbing or edema. Neurovascularly intact NEUROLOGICAL: Alert and oriented x4.Normal gait and speech. Cranial nerves II through XII grossly intact. SKIN: Warm, dry, no laceration, no petechiae, no rashes or lesions. Course Orders Ordered: ED Orders 02/21/19 00:02 EKG-12 Lead Stat 02/21/19 00:15 Basic Metabolic Panel Stat Complete Blood Count AUTO DIFF Stat Discontinued Medications Sodium Chloride (Normal Saline 0.9%) 1,000 mls @ 1,000 mls/hr IV BOLUS ONE Stop: 02/21/19 01:10 Last Infusion: 02/21/19 04:28 Dose: 0 mls/hr Admin: 02/21/19 00:23 Dose: 1,000 mls/hr Levetiracetam (Keppra) 500 mg PO NOW ONE Stop: 02/20/19 23:59 Last Admin: 02/21/19 00:03 Dose: 500 mg Vital Signs - 8 hr 02/21/19 00:03 02/21/19 04:30 Temperature 97.5 F L Pulse Rate 76 63 Respiratory Rate 18 16 Blood Pressure 136/79 116/65 Pulse Oximetry 97 98 MDM - Dizziness Lab Data Attestation: I reviewed the patient's lab results. Result diagrams: 02/21/19 00:15 02/21/19 00:15 Lab Results 02/21/19 02/21/19 Range/Units 00:15 00:15 WBC 8.7 (4.5-11.0) X10^3/uL RBC 4.52 (4.5-5.9) X10^6/uL Hgb 13.0 L (13.5-17.5) g/dL Hct 38.4 L (41-53) % MCV 84.9 (80-100) fL MCH 28.9 (26-34) PG MCHC 34.0 (30-36) % RDW 13.3 (11.6-14.8) % Plt Count 341 (150-400) X10^3/uL Neut % (Auto) 51.3 (50-75) % Lymph % (Auto) 40.7 H (25-40) % [place] % (Auto) 6.2 (3-14) % Eos % (Auto) 1.1 L (2-4) % Baso % (Auto) 0.7 (0-2) % Neut # (Auto) 4500 (1098-7474) /uL Lymph # (Auto) 3600 (5250-2887) /uL [place] # (Auto) 500 (0-900) /uL Eos # (Auto) 100 (0-450) /uL Baso # (Auto) 100 (0-100) /uL Sodium 141 (137-145) mmol/L Potassium 3.9 (3.4-5.1) mmol/L Chloride 105 (98-107) mmol/L Carbon Dioxide 26 (22-32) mmol/L BUN 12 (9-20) mg/dL Creatinine 0.70 (0.66-1.25) mg/dL Estimated GFR > 60.0 (>60) mL/min BUN/Creatinine Ratio 17.1 (6-22) Glucose 112 H (70-100) mg/dL Calcium 9.2 (8.4-10.2) mg/dL ECG Data Attestation: I personally reviewed and interpreted this ECG as follows: Prior ECG tracings: available for review Interpretation: Normal sinus rhythm rate 63 P are [address] changes no T-wave inversions similar to previous EKGs MDM Narrative Medical decision making narrative: Patient monitored in the ED for number of hours no seizure activity. He is given 1 dose of Keppra in the ED and prescription. Overall he is feeling much better after a L fluid. He did not have a seizure he has no focal deficits at this time no need for any further testing or imaging. Discharge Plan Departure Patient Disposition: Home Clinical Impression: Seizure disorder, Medication refill Discharge Date/Time: 02/21/19 04:31 Interventions: ED Discharge Assessment Last Done: 02/21/19 04:30 Instructions: DI for Seizure Disorder -- Adult Activity Restrictions/Additional Instructions: *You have been diagnosed with seizure disorder, medication refill *What to do: *Continue to take medications as directed Keppra 500 mg twice a day *Follow up with your primary care provider in 2-3 days *Return to ER if you should have seizure, passing out or any new, worsening or concerning symptoms Prescriptions: New levetiracetam [Keppra] 500 mg tablet 500 mg PO BID Qty: 60 RF: 0 No Action cyclobenzaprine 10 mg tablet 10 mg PO TID PRN (Reason: muscle spasm) Qty: 14 RF: 0
[2019-02-21 04:30] VITALS: BP 116/65; PULSE 63; RESP 16; O2SAT 98
== END 2019-02-21 04:31 | disposition home or self-care (01) ==
PROVIDERS: Emergency Provider Emergency Medicine
DX: G40.909 Epilepsy, unspecified, not intractable, without status epilepticus (principal); R10.13 Epigastric pain; R42 Dizziness and giddiness; Z76.0 Encounter for issue of repeat prescription
CPT/HCPCS: 36591; 80048; 85025; 93005; 93041; 96360; 96361; 99283; 99284

== ENCOUNTER 2019-02-22 22:59 | Emergency (ER) | payer OTHER, MEDICAID, SELFPAY ==
[2019-02-22 23:14] VITALS: BP 138/82; PULSE 76; RESP 16; TEMP 36.7; O2SAT 97; BMI 27.3
--- NOTE | 2019-02-22 23:27 | ED_ITS ---
HPI - Recheck/Abnormal Lab/Rx General Chief Complaint: Recheck/Abnormal Lab/Rx Stated Complaint: needs seizure medicine Time Seen by Provider: 02/22/19 23:02 Source: patient Mode of arrival: ambulatory Limitations: no limitations History of Present Illness HPI narrative: Patient is a 23-year-old male with a known seizure disorder. He was here in the emergency department yesterday after going a couple days without having his Keppra. He was given a prescription for Keppra. He states that the Keppra is at [facility] for him to scrap pick[facility] but he was not able to get there today to do that. He did not have his medication today. He came in for dose of his medication. Related Data Previous Rx's Medication Instructions Recorded cyclobenzaprine 10 mg PO TID PRN #14 tab 02/04/19 levetiracetam [Keppra] 500 mg PO BID #60 tab 02/21/19 Allergies Allergy/AdvReac Type Severity Reaction Status Date / Time Penicillins Allergy Verified 10/11/18 00:05 Sulfa (Sulfonamide Allergy Verified 10/11/18 00:05 Antibiotics) Review of Systems Constitutional Denies fever(s) and Denies headache(s) ENT Ears, Nose, Mouth, and Throat: Denies headache(s) Cardiovascular Denies chest pain and Denies dyspnea Respiratory Denies dyspnea Neurologic Denies headache(s) and Denies seizure-like activity Hematologic/Lymphatic Denies easy bleeding and Denies easy bruising [facility] Medical History Epilepsy (Acute) Social History Smoking Status: Never smoker Exam Initial Vital Signs Initial Vital Signs: Vital Signs Temperature 98.0 F 02/22/19 23:14 Pulse Rate 76 02/22/19 23:14 Respiratory Rate 16 02/22/19 23:14 Blood Pressure 138/82 02/22/19 23:14 Pulse Oximetry 97 02/22/19 23:14 Const General: cooperative, well developed, well groomed and No acute distress Orientation: alert, awake and oriented x3 HENMT Head: normal to inspection and normocephalic Resp Effort & Inspection: normal respiratory effort Cardio Rate: regular rate Skin Lesions: no lesions Rashes: no rashes Neuro General: alert and awake Cognition: normal cognition Speech: speech normal Gait: normal gait Motor: muscle tone normal throughout Extrem General: normal to inspection Course Orders Ordered: Discontinued Medications Levetiracetam (Keppra) 1,000 mg PO NOW ONE Stop: 02/22/19 23:27 Last Admin: 02/22/19 23:41 Dose: 1,000 mg Vital Signs - 8 hr 02/22/19 23:14 02/23/19 00:06 Temperature 98.0 F Pulse Rate 76 80 Respiratory Rate 16 15 Blood Pressure 138/82 112/58 L Pulse Oximetry 97 99 MDM - Recheck/Abnormal Lab/Rx MDM Narrative Medical decision making narrative: Patient was given 1000 mg of Keppra orally here in the ER. Has had no seizure activity. He was instructed he did need to fill his prescription at [facility] tomorrow and start taking as directed. He was given return precautions. He expressed understanding and agreement plan. Discharge Plan Departure Patient Disposition: Home Clinical Impression: Seizure disorder Discharge Date/Time: 02/23/19 00:08 Interventions: ED Discharge Assessment Last Done: 02/23/19 00:06 Instructions: DI for Seizure Disorder -- Adult Activity Restrictions/Additional Instructions: It is important that you take your medication as directed. Please go to [facility] tomorrow to fill your Keppra prescription and start taking it as directed. Contact primary provider for follow-up. Prescriptions: No Action cyclobenzaprine 10 mg tablet 10 mg PO TID PRN (Reason: muscle spasm) Qty: 14 RF: 0 levetiracetam [Keppra] 500 mg tablet 500 mg PO BID Qty: 60 RF: 0
[2019-02-22] MEDS: levETIRAcetam 250 MG TABLET 1000 MG PO (23:41)
[2019-02-23 00:06] VITALS: BP 112/58; PULSE 80; RESP 15; O2SAT 99
== END 2019-02-23 00:08 | disposition home or self-care (01) ==
PROVIDERS: Emergency Provider Emergency Medicine
DX: G40.909 Epilepsy, unspecified, not intractable, without status epilepticus (principal); Z76.0 Encounter for issue of repeat prescription
CPT/HCPCS: 99283

== ENCOUNTER 2020-02-24 21:58 | Emergency (ER) | payer OTHER, MEDICAID, SELFPAY ==
[2020-02-24 22:12] VITALS: BP 130/59; PULSE 62; RESP 16; TEMP 36.4; O2SAT 99; BMI 25.0
[2020-02-24] MEDS: IBUPROFEN 400 MG TABLET PO (22:22)
[2020-02-24] MEDS: ACETAMINOPHEN 325 MG TABLET 975 MG PO (22:22)
--- NOTE | 2020-02-24 22:43 | ED_ITS ---
HPI - Extremity Injury (Lower) General Chief Complaint: Extremity Injury, Lower Stated Complaint: left knee injury Time Seen by Provider: 02/24/20 22:00 History of Present Illness HPI Narrative: 24-year-old otherwise healthy gentleman with some previous left knee musculoskeletal issues has been out all day hiking and swimming and as the day is coming to an end he is noting increasing pain in the left knee. He notes no specific trauma or injury other than an active day. Complains of significant pain in the lateral aspect of the knee and difficulty walking. Related Data Previous Rx's Medication Instructions Recorded cyclobenzaprine 10 mg PO TID PRN #14 tab 02/04/19 levetiracetam [Keppra] 500 mg PO BID #60 tab 02/21/19 Allergies Allergy/AdvReac Type Severity Reaction Status Date / Time Penicillins Allergy Verified 10/11/18 00:05 Sulfa (Sulfonamide Allergy Verified 10/11/18 00:05 Antibiotics) Review of Systems Review of Systems Narrative: Incidental complaint dry mouth and musculoskeletal chest tightness every morning when he wakes up that resolved within 10 minutes. History of sleep apnea diagnosed when he was 6 Pertinent positive and negative findings as per HPI Remainder of review of systems is otherwise unremarkable for Constitutional: Fevers, chills, weakness ENT: No sore throat, neck pain, ear pain CV: palpitations, dyspnea on exertion Respiratory: Cough, wheeze, dyspnea GI: Nausea, vomiting, diarrhea, change in bowel habits, black or bloody stools Patient History Medical History Epilepsy (Acute) Social History Smoking Status: Never smoker Smoking Status: Never smoker alcohol intake frequency: 0-2 drinks per day Substance Use Type: marijuana Exam Narrative Exam Narrative: General: Alert appropriate in no acute distress Respiratory: Able to speak in full sentences, no obvious respiratory distress Skin: No obvious rashes, warm and dry Neurologic: Grossly intact no obvious asymmetries or abnormalities Psych, appropriate insight and affect, cooperative Extremity: Left knee is examined. There is a minor effusion. He is tender along the lateral aspect of the knee. Significantly dramatic behavior precludes more complete exam. He jumps and complains with touching any part of his knee. There is no obvious trauma abrasions or redness. He is able to extend fully and despite complaints that he can not bend at all he is able to reposition it in what appears to be a position of comfort at approximately degrees of flexion. He has an antalgic gait but is able to bear weight on that side. Initial Vital Signs Initial Vital Signs: Vital Signs Temperature 97.6 F 02/24/20 22:12 Pulse Rate 62 02/24/20 22:12 Respiratory Rate 16 02/24/20 22:12 Blood Pressure 130/59 L 02/24/20 22:12 Pulse Oximetry 99 02/24/20 22:12 Procedures Orthopedic Splinting/Casting Injury #1: Side: left Lower Extremity Injury Location: knee Lower Extremity Immobilizer: knee immobilizer Post splinting neuro exam: intact Post splinting vascular exam: intact Placed by: Nursing Course Orders Ordered: Discontinued Medications Acetaminophen (Tylenol) 975 mg PO NOW ONE Stop: 02/24/20 22:16 Last Admin: 02/24/20 22:22 Dose: 975 mg Documented by: ADAM Ibuprofen (Advil) 400 mg PO NOW ONE Stop: 02/24/20 22:16 Last Admin: 02/24/20 22:22 Dose: 400 mg Documented by: ADAM Oxycodone HCl (Percolone) 5 mg PO NOW ONE Stop: 02/24/20 22:45 Last Admin: 02/24/20 22:49 Dose: 5 mg Documented by: TINO Oxycodone/Acetaminophen (Endocet 5/325 [place]) 1 bottle [facility] ONE Stop: 02/24/20 22:45 Last Admin: 02/24/20 22:49 Dose: 1 bottle Documented by: TINO Vital Signs Vital signs: Vital Signs - 8 hr 02/24/20 22:12 Temperature 97.6 F Pulse Rate 62 Respiratory Rate 16 Blood Pressure 130/59 L Pulse Oximetry 99 MDM - Extremity Injury (Lower) MDM Narrative Medical decision making narrative: 24-year-old gentleman with acute left knee pain after a full day of heavy activity. No specific trauma. Minor effusion and tenderness laterally. Suspect he has an acute knee strain. He has put in a knee immobilizer. [place] knee rule suggested no need for imaging at this point. Will treat with rest ice pain medications immobilization. Recommended he follow-up with his primary care provider next week to see of knee is doing and see if advanced imaging in the form of MRI may be required. Also suggested that he review the sleep apnea type symptoms with his primary care physician. Safe for home discharge Discharge Plan Departure Patient Disposition: Home Clinical Impression: Knee strain Qualifiers: Encounter type: initial encounter Laterality: left Qualified Code(s): S86.912A - Strain of unspecified muscle(s) and tendon(s) at lower leg level, left leg, initial encounter Instructions: DI for Knee Sprain Activity Restrictions/Additional Instructions: Thank you for coming in today With your knee beginning to hurt after a full day of activity but no specific injury I suspect that this is a strain with an effusion (fluid inside the knee joint) collecting. At this time, there is no reason to do x-rays as there is no bony injuries or concern for broken bones. Resting the knee, using the knee immobilizer, ice and using 400 mg of ibuprofen (2 [id number] pills) and 1 Tylenol every 6 hours can be very helpful in controlling pain. For severe pain you can take [address] of Tylenol with the to ibuprofen. Please schedule you an appointment with your primary care physician next week to make sure that your knee is improving and see if any additional imaging studies are needed. Please mention the dry mouth and chest tightness that we discussed to your primary care physician as well. If you have worsening symptoms, redness or fevers please feel free to return to the emergency department Prescriptions: No Action cyclobenzaprine 10 mg tablet 10 mg PO TID PRN (Reason: muscle spasm) Qty: 14 RF: 0 levetiracetam [Keppra] 500 mg tablet 500 mg PO BID Qty: 60 RF: 0
[2020-02-24] MEDS: OXYCODONE/APAP 5/325 PREPACK 1 BOTTLE MISC (22:49)
[2020-02-24] MEDS: OXYCODONE IR 5 MG TABLET PO (22:49)
[2020-02-24 23:01] VITALS: BP 138/78; PULSE 89; RESP 16; O2SAT 97
== END 2020-02-24 23:02 | disposition home or self-care (01) ==
PROVIDERS: Emergency Provider Emergency Medicine
DX: S86.912A Strain of unspecified muscle(s) and tendon(s) at lower leg level, left leg, initial encounter (principal)
CPT/HCPCS: 99283

== ENCOUNTER → 2022-12-25 16:00 | Outpatient (CLI) | payer OTHER, MEDICAID, SELFPAY ==
[2022-12-25 16:22] LABS: Add Manual Diff / Slide Review NO; Basophils Absolute Auto 100 /uL (0-100); Basophils Percent Auto 0.9 % (0-2); Eosinophils Absolute Auto 100 /uL (0-450); Eosinophils Percent Auto 0.8 % (2-4); Hematocrit 41.3 % (41-53); Lymphocytes Absolute Auto 2500 /uL (1100-4500); Lymphocytes Percent Auto 28.7 % (25-40); Mean Corpuscular HGB Conc 33.9 % (30-36); Mean Corpuscular Hemoglobin 28.6 PG (26-34); Mean Corpuscular Volume 84.3 fL (80-100); Monocytes Absolute Auto 500 /uL (0-900); Monocytes Percent Auto 6.3 % (3-14); Neutrophils Absolute Auto 5500 /uL (1500-7000); Neutrophils Percent Auto 63.3 % (50-75); Platelet Count 409 X10^3/uL (150-400); Red Cell Distribution Width 13.3 % (11.6-14.8); White Blood Cell Count 8.7 X10^3/uL (4.5-11.0)
[2022-12-25 17:43] LABS: Alanine Aminotransferase 24 IU/L (<50); Albumin 4.7 g/dL (3.5-5.0); Albumin Globulin Ratio 1.3 (1.0-2.8); Alkaline Phosphatase 72 U/L (38-126); Aspartate Aminotransferase 24 IU/L (17-59); BUN Creatinine Ratio 18.3 (6-22); Bilirubin Total 0.4 mg/dL (0.2-1.3); Blood Urea Nitrogen 13 mg/dL (9-20); Calcium 9.2 mg/dL (8.4-10.2); Carbon Dioxide 29 mmol/L (22-32); Chloride 105 mmol/L (98-107); Cholesterol 148 mg/dL (140-199); Estimated Glomerular Filt Rate > 60 mL/min (>60); Globulin 3.5 g/dL (1.7-4.1); Glucose 102 mg/dL (70-100); HDL Cholesterol 38 mg/dL (40-60); HEMOLYSIS < 15 (0-50); LDL Cholesterol Calculated 100 mg/dL (<100); Potassium 4.1 mmol/L (3.4-5.1); Sodium 142 mmol/L (137-145); Total Protein 8.2 g/dL (6.3-8.2); Triglycerides 50 mg/dL (35-150)
[2022-12-25 17:59] LABS: Free T4, Direct Thyroxine 0.96 ng/dL (0.78-2.19)
[2022-12-25 18:13] LABS: TSH w/ Reflex to FT4 0.08 uIU/mL (0.47-4.68)
== END ==
PROVIDERS: PCP Family Medicine; Referring Provider Family Medicine; Visit Provider Family Medicine
DX: G40.909 Epilepsy, unspecified, not intractable, without status epilepticus (principal)
CPT/HCPCS: 36415; 80053; 80061; 80177; 84439; 84443; 85025

== ENCOUNTER 2023-02-02 18:43 | Emergency (ER) | payer OTHER, MEDICAID, SELFPAY ==
[2023-02-02] VITALS (10 sets, daily range): BP systolic 105–135; BP diastolic 56–67; PULSE 73–99; RESP 14–20; TEMP 36.7; O2SAT 97–100; BMI 25.8
--- NOTE | 2023-02-02 18:52 | ED_ITS ---
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 He states the discomfort is sharp and stabbing and has been persistent over at least the past 4 days. He has had cough which is productive of yellowish sputum and states that deep breath and motion as well as lying flat worsen that pain. Additionally palpation of his left anterior chest worsens the pain. He has no measured fever but has had subjective chills and nausea. He denies dizziness, weakness or lightheadedness. Related Data Home Medications Medication Instructions Recorded Confirmed trazodone PO sleep 12/25/22 12/25/22 Previous Rx's Medication Instructions Recorded levetiracetam 500 mg tablet 500 mg PO BID #180 tabs 12/25/22 (Keppra) benzonatate 200 mg capsule 200 mg PO BID PRN cough #20 caps 02/02/23 doxycycline hyclate 100 mg tablet 100 mg PO BID #20 tabs 02/02/23 Allergies Allergy/AdvReac Type Severity Reaction Status Date / Time Penicillins Allergy Verified 12/25/22 15:15 Sulfa (Sulfonamide Allergy Verified 12/25/22 15:15 Antibiotics) Review of Systems Review of Systems Narrative: GENERAL: Denies chills, fatigue, malaise, fever, sweats. HEENT: Denies sinus pain, ear pain, sore throat, difficulty swallowing, dizziness. RESPIRATORY: Denies dyspnea, cough, wheezing, hemoptysis, sputum. CARDIOVASCULAR: Denies chest pain, palpitations, orthopnea, edema, GASTROINTESTINAL: Denies nausea, vomiting, abdominal pain, diarrhea, constipatio n, melena. : Denies dysuria, frequency, incontinence, hematuria, urinary retention. MUSCULOSKELETAL: denies weakness, joint pain, or bony pain SKIN: Denies rash, skin lesions, or other NEUROLOGIC: Denies weakness, headache, numbness, change in speech, confusion, seizures, incoordination. PSYCHIATRIC: No concerning psychosocial issues. 12 point review of systems is negative except for those stated above Patient History Medical History Cardiovascular disease Epilepsy Family history of type 2 diabetes mellitus Social History Smoking Status: Never smoker Smoking Status: Never smoker alcohol intake frequency: holidays/special occasions only Substance Use Type: marijuana Exam Narrative Exam Narrative: GENERAL: [] year old patient appears stated age. Well-developed patient, in mild distress. HEAD: Atraumatic. Normocephalic. EYES: Pupils equal round and reactive. Extraocular motions intact. No scleral icterus. No injection or drainage. ENT: Nose without bleeding, purulent drainage. Throat without erythema, tonsillar hypertrophy or exudate. Airway patent. NECK: Trachea midline. Non tender CARDIOVASCULAR: Regular rate and rhythm without murmurs, gallops, or rubs. RESPIRATORY: Clear to auscultation. Breath sounds equal bilaterally. No wheezes, rales, or rhonchi. GASTROINTESTINAL: Abdomen soft, non-tender, nondistended. EXTREMITIES: No edema or joint tenderness. BACK: Nontender without deformity or crepitance. No flank tenderness. NEURO: AOx3. SKIN: No rash or erythema of visible areas Initial Vital Signs Initial Vital Signs: Vital Signs Temperature 98.1 F 02/02/23 18:45 Pulse Rate 99 H 02/02/23 18:45 Respiratory Rate 20 02/02/23 18:45 Blood Pressure 135/65 02/02/23 18:45 Pulse Oximetry 98 02/02/23 18:45 Oxygen Delivery Method Room Air 02/02/23 18:45 Scores HEART Score Heart Score history: Slightly Suspicious Heart Score EKG: Normal Heart Score Age: < 45 years old Heart Score risk factors: No known risk factors Heart Score troponin: < or = to normal limit Heart Score Total: 0 Course Orders Ordered: ED Orders 02/02/23 19:00 CRP [C-Reactive Protein Quant] Stat Complete Blood Count AUTO DIFF Stat Comprehensive Metabolic Panel Stat D Dimer Stat ESR [Erythrocyte Sedimentation Rate] Stat Lipase Stat Magnesium Stat PTT Partial Thromboplastin [place] Stat Procalcitonin Stat Prothrombin Time INR Stat Troponin & CK Cardiac Panel Stat 02/02/23 20:00 Respiratory Panel (Film Array) Stat Discontinued Medications Aspirin (Aspirin 81 Mg Chew Tab) 324 mg PO NOW ONE Stop: 02/02/23 18:54 Last Admin: 02/02/23 19:06 Dose: 324 mg Documented By: LUCIO Doxycycline Hyclate (Doxycycline Hyclate 100 Mg Tablet) 100 mg PO NOW ONE Stop: 02/02/23 20:45 Last Admin: 02/02/23 20:51 Dose: 100 mg Documented By: FLAKO Ketorolac Tromethamine (Ketorolac 30 Mg/Ml Vial) 15 mg IV NOW ONE Stop: 02/02/23 19:53 Last Admin: 02/02/23 19:59 Dose: 15 mg Documented By: FLAKO Vital Signs Vital signs: Vital Signs - 8 hr 02/02/23 20:00 02/02/23 20:00 02/02/23 20:15 Pulse Rate 84 78 Respiratory Rate 19 18 Blood Pressure 116/67 Pulse Oximetry 99 98 Oxygen Delivery Method Room Air Room Air 02/02/23 20:15 02/02/23 20:30 02/02/23 20:30 Pulse Rate 73 Respiratory Rate 18 Blood Pressure 105/56 L 110/58 L Pulse Oximetry 98 Oxygen Delivery Method Room Air 02/02/23 20:45 02/02/23 20:45 Pulse Rate 75 Respiratory Rate 19 Blood Pressure 124/60 Pulse Oximetry 97 Oxygen Delivery Method Room Air MDM - Chest Pain Lab Data 02/02/23 19:00 02/02/23 19:00 Labs: Lab Results 02/02/23 02/02/23 02/02/23 Range/Units 19:00 19:00 19:00 WBC 13.8 H (4.5-11.0) X10^3/uL RBC 4.82 (4.5-5.9) X10^6/uL Hgb 13.7 (13.5-17.5) g/dL Hct 40.0 L (41-53) % MCV 83.0 (80-100) fL MCH 28.4 (26-34) PG MCHC 34.2 (30-36) % RDW 13.4 (11.6-14.8) % Plt Count 365 (150-400) X10^3/uL Neut % (Auto) 73.9 (50-75) % Lymph % (Auto) 16.5 L (25-40) % Tyler % (Auto) 8.2 (3-14) % Eos % (Auto) 0.9 L (2-4) % Baso % (Auto) 0.5 (0-2) % Neut # (Auto) 04050 H (4014-1072) /uL Lymph # (Auto) 2300 (6388-7476) /uL Tyler # (Auto) 1100 H (0-900) /uL Eos # (Auto) 100 (0-450) /uL Baso # (Auto) 100 (0-100) /uL ESR (0-15) MM/HR PT 12.1 (10.1-12.7) SECONDS INR 1.1 (0.9-1.3) APTT 28 (26-36) SECONDS D-Dimer (<500) ng/ml Sodium 139 (137-145) mmol/L Potassium 3.8 (3.4-5.1) mmol/L Chloride 100 (98-107) mmol/L Carbon Dioxide 32 (22-32) mmol/L BUN 11 (9-20) mg/dL Creatinine 0.66 (0.66-1.25) mg/dL Estimated GFR > 60 (>60) mL/min BUN/Creatinine Ratio 16.7 (6-22) Glucose 94 (70-100) mg/dL Calcium 9.1 (8.4-10.2) mg/dL Magnesium 2.1 (1.6-2.3) mg/dL Total Bilirubin 0.2 (0.2-1.3) mg/dL AST 24 (17-59) IU/L ALT 34 (<50) IU/L Alkaline Phosphatase 86 (38-126) U/L Total Creatine Kinase 39 L (55-170) U/L CK-MB (CK-2) TNP CK-MB (CK-2) Rel Index TNP Troponin I < 0.012 (0.01-0.034) ng/mL C-Reactive Protein (<1.0) mg/dL Total Protein 7.8 (6.3-8.2) g/dL Albumin 4.6 (3.5-5.0) g/dL Globulin 3.2 (1.7-4.1) g/dL Albumin/Globulin Ratio 1.4 (1.0-2.8) Lipase 385 H (23-300) U/L Procalcitonin (<0.5) ng/mL Chlamy pneumoniae PCR (Not Detect) Adenovirus (PCR) (Not Detect) B. pertussis DNA (PCR) (Not Detecte) B.parapertussis DNA PCR (Not Detecte) Coronavirus OC43 (PCR) (Not Detect) Coronavirus HKU1 (PCR) (Not Detect) Coronavirus 229E (PCR) (Not Detect) SARS-CoV-2 (PCR) (Not Detecte) Coronavirus NL63 (PCR) (Not Detect) Human Metapneumovir PCR (Not Detect) Influenza Type A (PCR) (Not Detect) Influenza Type B (PCR) (Not Detect) M. pneumoniae (PCR) (Not Detect) Parainfluenza 1 (PCR) (Not Detect) Parainfluenza 2 (PCR) (Not Detect) Parainfluenza 3 (PCR) (Not Detect) Parainfluenza 4 (PCR) (Not Detect) RSV (PCR) (Not Detect) Entero/Rhino (PCR) (Not Detect) 02/02/23 02/02/23 02/02/23 Range/Units 19:00 19:00 19:00 WBC (4.5-11.0) X10^3/uL RBC (4.5-5.9) X10^6/uL Hgb (13.5-17.5) g/dL Hct (41-53) % MCV (80-100) fL MCH (26-34) PG MCHC (30-36) % RDW (11.6-14.8) % Plt Count (150-400) X10^3/uL Neut % (Auto) (50-75) % Lymph % (Auto) (25-40) % Tyler % (Auto) (3-14) % Eos % (Auto) (2-4) % Baso % (Auto) (0-2) % Neut # (Auto) (6272-7566) /uL Lymph # (Auto) (5097-2323) /uL Tyler # (Auto) (0-900) /uL Eos # (Auto) (0-450) /uL Baso # (Auto) (0-100) /uL ESR 10 (0-15) MM/HR PT (10.1-12.7) SECONDS INR (0.9-1.3) APTT (26-36) SECONDS D-Dimer 266 (<500) ng/ml Sodium (137-145) mmol/L Potassium (3.4-5.1) mmol/L Chloride (98-107) mmol/L Carbon Dioxide (22-32) mmol/L BUN (9-20) mg/dL Creatinine (0.66-1.25) mg/dL Estimated GFR (>60) mL/min BUN/Creatinine Ratio (6-22) Glucose (70-100) mg/dL Calcium (8.4-10.2) mg/dL Magnesium (1.6-2.3) mg/dL Total Bilirubin (0.2-1.3) mg/dL AST (17-59) IU/L ALT (<50) IU/L Alkaline Phosphatase (38-126) U/L Total Creatine Kinase (55-170) U/L CK-MB (CK-2) CK-MB (CK-2) Rel Index Troponin I (0.01-0.034) ng/mL C-Reactive Protein 2.0 H (<1.0) mg/dL Total Protein (6.3-8.2) g/dL Albumin (3.5-5.0) g/dL Globulin (1.7-4.1) g/dL Albumin/Globulin Ratio (1.0-2.8) Lipase (23-300) U/L Procalcitonin (<0.5) ng/mL Chlamy pneumoniae PCR (Not Detect) Adenovirus (PCR) (Not Detect) B. pertussis DNA (PCR) (Not Detecte) B.parapertussis DNA PCR (Not Detecte) Coronavirus OC43 (PCR) (Not Detect) Coronavirus HKU1 (PCR) (Not Detect) Coronavirus 229E (PCR) (Not Detect) SARS-CoV-2 (PCR) (Not Detecte) Coronavirus NL63 (PCR) (Not Detect) Human Metapneumovir PCR (Not Detect) Influenza Type A (PCR) (Not Detect) Influenza Type B (PCR) (Not Detect) M. pneumoniae (PCR) (Not Detect) Parainfluenza 1 (PCR) (Not Detect) Parainfluenza 2 (PCR) (Not Detect) Parainfluenza 3 (PCR) (Not Detect) Parainfluenza 4 (PCR) (Not Detect) RSV (PCR) (Not Detect) Entero/Rhino (PCR) (Not Detect) 02/02/23 02/02/23 Range/Units 19:00 20:00 WBC (4.5-11.0) X10^3/uL RBC (4.5-5.9) X10^6/uL Hgb (13.5-17.5) g/dL Hct (41-53) % MCV (80-100) fL MCH (26-34) PG MCHC (30-36) % RDW (11.6-14.8) % Plt Count (150-400) X10^3/uL Neut % (Auto) (50-75) % Lymph % (Auto) (25-40) % Tyler % (Auto) (3-14) % Eos % (Auto) (2-4) % Baso % (Auto) (0-2) % Neut # (Auto) (6732-9761) /uL Lymph # (Auto) (3975-7086) /uL Tyler # (Auto) (0-900) /uL Eos # (Auto) (0-450) /uL Baso # (Auto) (0-100) /uL ESR (0-15) MM/HR PT (10.1-12.7) SECONDS INR (0.9-1.3) APTT (26-36) SECONDS D-Dimer (<500) ng/ml Sodium (137-145) mmol/L Potassium (3.4-5.1) mmol/L Chloride (98-107) mmol/L Carbon Dioxide (22-32) mmol/L BUN (9-20) mg/dL Creatinine (0.66-1.25) mg/dL Estimated GFR (>60) mL/min BUN/Creatinine Ratio (6-22) Glucose (70-100) mg/dL Calcium (8.4-10.2) mg/dL Magnesium (1.6-2.3) mg/dL Total Bilirubin (0.2-1.3) mg/dL AST (17-59) IU/L ALT (<50) IU/L Alkaline Phosphatase (38-126) U/L Total Creatine Kinase (55-170) U/L CK-MB (CK-2) CK-MB (CK-2) Rel Index Troponin I (0.01-0.034) ng/mL C-Reactive Protein (<1.0) mg/dL Total Protein (6.3-8.2) g/dL Albumin (3.5-5.0) g/dL Globulin (1.7-4.1) g/dL Albumin/Globulin Ratio (1.0-2.8) Lipase (23-300) U/L Procalcitonin < 0.03 (<0.5) ng/mL Chlamy pneumoniae PCR Not detected (Not Detect) Adenovirus (PCR) Not detected (Not Detect) B. pertussis DNA (PCR) Not detected (Not Detecte) B.parapertussis DNA PCR Not detected (Not Detecte) Coronavirus OC43 (PCR) Not detected (Not Detect) Coronavirus HKU1 (PCR) Not detected (Not Detect) Coronavirus 229E (PCR) Not detected (Not Detect) SARS-CoV-2 (PCR) Not detected (Not Detecte) Coronavirus NL63 (PCR) Not detected (Not Detect) Human Metapneumovir PCR Not detected (Not Detect) Influenza Type A (PCR) Not detected (Not Detect) Influenza Type B (PCR) Not detected (Not Detect) M. pneumoniae (PCR) Not detected (Not Detect) Parainfluenza 1 (PCR) Not detected (Not Detect) Parainfluenza 2 (PCR) Not detected (Not Detect) Parainfluenza 3 (PCR) Not detected (Not Detect) Parainfluenza 4 (PCR) Not detected (Not Detect) RSV (PCR) Not detected (Not Detect) Entero/Rhino (PCR) Detected H (Not Detect) ECG Data Interpretation: [1902] EKG is normal sinus rhythm rate [89] and free of any signs of ischemia or ectopy. No ST segmental elevation or depression. No T wave inversions MDM Narrative Medical decision making narrative: [27] year old patient presents with sharp and stabbing left-sided chest pain that is pleuritic in nature with associated cough and sputum production Multiple etiologies for patient's symptoms considered including, but not limited to: [Pneumonia versus viral symptoms versus cardiac ischemia versus pulmonary embolism versus pericarditis versus other] Prior Charts reviewed in our EMR Primary Historian: patient Labs reviewed and interpreted by myself: Slight leukocytosis with no significant left shift, no signs of anemia, D-dimer below cutoff, primary electrolytes, renal function, LFTs and troponin all within normal limits. Lipase slightly elevated, however there is no epigastric pain, CRP slightly elevated Imaging reviewed: Chest x-ray without acute findings Patient's symptoms improved over duration of stay with above-stated therapies. His pain is sharp and stabbing and reproducible with motion, deep breath and palpation. EKGs nonischemic, heart score is low. PE considered but thought unlikely given D-dimer. Given pleuritic-type pain, cough with sputum production we discussed treating for atypical pneumonia. Patient and family understand and agree with diagnosis and plan Findings and discharge diagnosis discussed with patient/family followed by verbalization of understanding Return precautions discussed with patient/family whom verbalize understanding of diagnosis and plan Discharge Plan Departure Patient Disposition: Home Clinical Impression: Atypical pneumonia, Atypical chest pain Instructions: DI for Atypical Pneumonia Activity Restrictions/Additional Instructions: *You have been diagnosed with [left-sided chest pain likely due to atypical pneumonia. As we discussed your history and physical exam are reassuring and there is no indication of a heart attack, blood clot or other significant diagnosis requiring a specific or immediate intervention] *What to do: *Please continue to take your regular medications as directed. [x] New medication prescriptions sent to your pharmacy: [ [facility]] [ ] New medication written as a paper prescription [ ] No new medications given *Please follow up with your primary care provider in 2-3 days, call for an appointment. Let them know you were seen in the Emergency Department and that we ask that you be seen in follow up. We will electronically transmit a record of today's note if your PCP is in our system *If you do not have a primary care provider please contact the [facility] Resource line at [phone]. They will ask some questions about your medical history and help get you set up with a doctor in the community. *Return to Emergency Department if you should have any new, worsening or concerning symptoms, such as [fever greater than 101 F, shaking chills, worsening pain, persistent vomiting or other bothersome symptoms] Prescriptions: New benzonatate 200 mg capsule 200 mg PO BID PRN (Reason: cough) Qty: 20 0RF doxycycline hyclate 100 mg tablet 100 mg PO BID Qty: 20 0RF No Action trazodone PO levetiracetam [Keppra] 500 mg tablet 500 mg PO BID Qty: 180 1RF Referrals: Noah Adams, DO [Primary Care Provider] - Stand Alone Forms: Patient Portal/API
--- NOTE | 2023-02-02 18:53 | DI.RAD.S_ITS ---
PROCEDURE: XR CHEST 1V INDICATIONS: chest pain TECHNIQUE: One view of the chest was acquired. COMPARISON: [facility], CR, XR CHEST 1 VIEW, 03/07/2020, 22:27. FINDINGS: Surgical changes and devices: None. Lungs and pleura: Lungs are clear. No pleural effusions or pneumothorax. Mediastinum: Mediastinal contours appear normal. Heart size is normal. Bones and chest wall: No suspicious bony lesions. Overlying soft tissues appear unremarkable. IMPRESSION: No acute cardiopulmonary disease. Dictated by: Thomas Welsh M.D. on 02/02/2023 at 19:46 Approved by: Thomas Welsh M.D. on 02/02/2023 at 19:47
[2023-02-02] MEDS: ASPIRIN 81 MG CHEW TAB 324 MG PO (19:06)
[2023-02-02 19:07] LABS: Add Manual Diff / Slide Review NO; Basophils Absolute Auto 100 /uL (0-100); Basophils Percent Auto 0.5 % (0-2); Eosinophils Absolute Auto 100 /uL (0-450); Eosinophils Percent Auto 0.9 % (2-4); Hemoglobin 13.7 g/dL (13.5-17.5); Lymphocytes Absolute Auto 2300 /uL (1100-4500); Lymphocytes Percent Auto 16.5 % (25-40); Mean Corpuscular HGB Conc 34.2 % (30-36); Mean Corpuscular Hemoglobin 28.4 PG (26-34); Monocytes Absolute Auto 1100 /uL (0-900); Monocytes Percent Auto 8.2 % (3-14); Neutrophils Absolute Auto 10200 /uL (1500-7000); Neutrophils Percent Auto 73.9 % (50-75); Platelet Count 365 X10^3/uL (150-400); Red Blood Cell Count 4.82 X10^6/uL (4.5-5.9); Red Cell Distribution Width 13.4 % (11.6-14.8); White Blood Cell Count 13.8 X10^3/uL (4.5-11.0)
[2023-02-02 19:15] LABS: INR 1.1 (0.9-1.3); Prothrombin Time 12.1 SECONDS (10.1-12.7)
[2023-02-02 19:17] LABS: PTT Partial Thromboplastin Tim 28 SECONDS (26-36)
[2023-02-02 19:20] LABS: Alanine Aminotransferase 34 IU/L (<50); Albumin 4.6 g/dL (3.5-5.0); Albumin Globulin Ratio 1.4 (1.0-2.8); Alkaline Phosphatase 86 U/L (38-126); Aspartate Aminotransferase 24 IU/L (17-59); BUN Creatinine Ratio 16.7 (6-22); Bilirubin Total 0.2 mg/dL (0.2-1.3); Blood Urea Nitrogen 11 mg/dL (9-20); Calcium 9.1 mg/dL (8.4-10.2); Carbon Dioxide 32 mmol/L (22-32); Chloride 100 mmol/L (98-107); Creatine Kinase 39 U/L (55-170); Estimated Glomerular Filt Rate > 60 mL/min (>60); Globulin 3.2 g/dL (1.7-4.1); Glucose 94 mg/dL (70-100); HEMOLYSIS < 15 (0-50); Lipase 385 U/L (23-300); Magnesium 2.1 mg/dL (1.6-2.3); Potassium 3.8 mmol/L (3.4-5.1); Sodium 139 mmol/L (137-145); Total Protein 7.8 g/dL (6.3-8.2)
[2023-02-02 19:25] LABS: D Dimer 266 ng/ml (<500)
[2023-02-02 19:31] LABS: Troponin I < 0.012 ng/mL (0.01-0.034)
[2023-02-02 19:35] LABS: Erythrocyte Sedimentation Rate 10 MM/HR (0-15)
[2023-02-02 19:37] LABS: Procalcitonin < 0.03 ng/mL (<0.5)
[2023-02-02] MEDS: KETOROLAC 30 MG/ML VIAL 15 MG IV (19:59)
[2023-02-02] MEDS: DOXYCYCLINE HYCLATE 100 MG TABLET PO (20:51)
[2023-02-02 21:13] LABS: Adenovirus Not Detected (Not Detect); B. parapertussis Not Detected (Not Detecte); Bordetella pertussis Not Detected (Not Detecte); Chlamydophila pneumoniae Not Detected (Not Detect); Coronavirus 229E Not Detected (Not Detect); Coronavirus HKU1 Not Detected (Not Detect); Coronavirus NL 63 Not Detected (Not Detect); Coronavirus OC43 Not Detected (Not Detect); Human Metapneumovirus Not Detected (Not Detect); Human Rhinovirus/Enterovirus Detected (Not Detect); Influenza A Not Detected (Not Detect); Influenza B Not Detected (Not Detect); Mycoplasma pneumoniae Not Detected (Not Detect); Parainfluenza Virus 1 Not Detected (Not Detect); Parainfluenza Virus 2 Not Detected (Not Detect); Parainfluenza Virus 3 Not Detected (Not Detect); Parainfluenza Virus 4 Not Detected (Not Detect); Respiratory Syncytial Virus Not Detected (Not Detect); SARS- CoV-2 Not Detected (Not Detecte)
== END 2023-02-02 21:05 | disposition home or self-care (01) ==
PROVIDERS: Emergency Provider Emergency Medicine; PCP Family Medicine
DX: J18.9 Pneumonia, unspecified organism (principal); R07.89 Other chest pain; Z20.822 Contact with and (suspected) exposure to COVID-19
CPT/HCPCS: 36415; 71045; 80053; 82550; 83690; 83735; 84145; 84484; 85025; 85379; 85610; 85651; 85730; 86140; 87633; 93005; 93010; 96374; 99284; J1885

== ENCOUNTER 2023-02-19 20:07 | Emergency (ER) | payer OTHER, MEDICAID, SELFPAY ==
[2023-02-19 20:11] VITALS: BP 113/68; PULSE 74; RESP 16; TEMP 37.2; O2SAT 98; BMI 23.8
[2023-02-19 22:03] VITALS: BP 117/70; PULSE 78; RESP 16; O2SAT 100
--- NOTE | 2023-02-19 22:26 | ED.GENADULT ---
HPI - General Adult General Chief complaint: Dizziness Stated complaint: Dizziness, Poss seizure Time Seen by Provider: 02/19/23 20:43 Source: patient Mode of arrival: Ambulatory History of Present Illness HPI narrative: Patient is a 27-year-old male. He does have history of epilepsy. Is on Keppra. Takes 500 mg twice a day. He has been on this medication for almost 7 years. He states that recently he has had some increased stress in his life. Decreased sleep because of his child not sleeping at home. He also states that he has not been drinking or eating all that well either. He is taking all his medications. He states that earlier this evening he had an episode where he had a short episode of vertigo. He states that this was a room spinning sensation. He was not having any chest pain or shortness of breath at the time. No ringing in his ears. He stated that he almost passed out but actually did not pass out. No specific seizure-like activity. He had no postictal state. How he felt with the dizziness in the lightheadedness is sometimes how he feels before his seizures but he does admit that he does not think he would a seizure-like activity. Related Data Home Medications Medication Instructions Recorded Confirmed trazodone PO sleep 12/25/22 12/25/22 Previous Rx's Medication Instructions Recorded levetiracetam 500 mg tablet 500 mg PO BID #180 tabs 12/25/22 (Keppra) benzonatate 200 mg capsule 200 mg PO BID PRN cough #20 caps 02/02/23 doxycycline hyclate 100 mg tablet 100 mg PO BID #20 tabs 02/02/23 meclizine 25 mg tablet 25 mg PO BID PRN dizziness #14 tabs 02/19/23 Allergies Allergy/AdvReac Type Severity Reaction Status Date / Time Penicillins Allergy Verified 02/19/23 20:11 Sulfa (Sulfonamide Allergy Verified 02/19/23 20:11 Antibiotics) Review of Systems Constitutional Constitutional: Reports system reviewed and no additional complaints, except as documented ENT Ears, Nose, Mouth, and Throat: Reports system reviewed and no additional complaints, except as documented Cardiovascular Cardiovascular: Reports system reviewed and no additional complaints, except as documented Respiratory Respiratory: Reports system reviewed and no additional complaints, except as documented Integumentary/Breasts Skin/Breast: Reports system reviewed and no additional complaints, except as documented Neurologic Neurologic: Reports system reviewed and no additional complaints, except as documented Hematologic/Lymphatic On Anticoagulants: No Patient History Medical History Cardiovascular disease Epilepsy Family history of type 2 diabetes mellitus Social History Smoking Status: Never smoker Smoking Status: Never smoker alcohol intake frequency: holidays/special occasions only Substance Use Type: marijuana Exam Initial Vital Signs Initial Vital Signs: Vital Signs Temperature 98.9 F 02/19/23 20:11 Pulse Rate 74 02/19/23 20:11 Respiratory Rate 16 02/19/23 20:11 Blood Pressure 113/68 02/19/23 20:11 Pulse Oximetry 98 02/19/23 20:11 Oxygen Delivery Method Room Air 02/19/23 20:11 HENMT Head: normal to inspection and normocephalic Resp Effort & Inspection: normal respiratory effort Cardio Rate: regular rate Skin General: no rashes or lesions noted Neuro General: patient alert, patient awake and moves all extremities Extrem General: capillary refill normal Course Orders Ordered: Discontinued Medications Meclizine HCl (Meclizine Hcl 12.5 Mg Tablet) 25 mg PO NOW ONE Stop: 02/19/23 22:27 Last Admin: 02/19/23 22:30 Dose: 25 mg Documented By: Vital Signs Vital signs: Vital Signs - 8 hr 02/19/23 20:11 02/19/23 22:03 Temperature 98.9 F Pulse Rate 74 78 Respiratory Rate 16 16 Blood Pressure 113/68 117/70 Pulse Oximetry 98 100 Oxygen Delivery Method Room Air Room Air Medical Decision Making [facility] Narrative Medical decision making narrative: Patient is well-appearing. His symptoms that he presents with today are not consistent with a seizure. He does explain a vertigo-like sensation. I have a high suspicion that his symptoms today are related to his stress that he recently has had in patient agrees with this. Will treat with meclizine. No indication for further workup here in the ER. He was given return precautions. He expressed understanding and agreement. Discharge Plan Departure Patient Disposition: Home Clinical Impression: Pre-syncope, Vertigo Instructions: DI for Vertigo Activity Restrictions/Additional Instructions: I recommend that you continue to take all of your medications as directed. Be sure that you are increasing your fluid intake and eating a balanced diet. Return to the emergency department for new or worsening symptoms. Prescriptions: New meclizine 25 mg tablet 25 mg PO BID PRN (Reason: dizziness) Qty: 14 0RF No Action trazodone PO levetiracetam [Keppra] 500 mg tablet 500 mg PO BID Qty: 180 1RF benzonatate 200 mg capsule 200 mg PO BID PRN (Reason: cough) Qty: 20 0RF doxycycline hyclate 100 mg tablet 100 mg PO BID Qty: 20 0RF Referrals: Noah Adams, [Primary Care Provider] - Stand Alone Forms: Patient Portal/API, Work Release Note
[2023-02-19] MEDS: MECLIZINE HCL 12.5 MG TABLET 25 MG PO (22:30)
== END 2023-02-19 22:34 | disposition home or self-care (01) ==
PROVIDERS: Emergency Provider Emergency Medicine; PCP Family Medicine
DX: R55 Syncope and collapse (principal); R42 Dizziness and giddiness; G40.909 Epilepsy, unspecified, not intractable, without status epilepticus
CPT/HCPCS: 99283